=== PATIENT | male | born 1975 | race Caucasian/White ===

== ENCOUNTER 2017-08-04 12:55 | Emergency (ER) | payer MEDICAID, OTHER ==
[~2017-08-04] VITALS: Ht 185.4 cm; Wt 108.9 kg
[2017-08-04 13:33] VITALS: BP 123/78
[2017-08-04] MEDS ORDERED: FLUORESCEIN SOD 1 MG TEST STRIP RIGHTEYE ONE (16:00)
[2017-08-04] MEDS ORDERED: TETRACAINE HCL 0.5% OPTH(EYE) SOLN 4ML RIGHTEYE ONE (16:00)
== END 2017-08-04 17:36 | disposition home or self-care (01) ==
LOC: ER 12:55
DX: T15.01XA Foreign body in cornea, right eye, initial encounter (principal); X58.XXXA Exposure to other specified factors, initial encounter; Y93.89 Activity, other specified; Y92.89 Other specified places as the place of occurrence of the external cause; Y99.8 Other external cause status